=== PATIENT | male | born 1995 | race Two or more races ===

== ENCOUNTER 2020-08-20 15:34 | Inpatient (IN) | payer SELFPAY ==
[~2020-08-20] VITALS: Ht 177.8 cm; Wt 78.4 kg
[2020-08-20] MEDS ORDERED: CHOLECALCIFEROL (VITD3) 2,000 UNIT CAP PO ONE (16:00)
[2020-08-20] MEDS ORDERED: ASCORBIC ACID 500 MG TAB PO ONE (16:00)
[2020-08-20] MEDS ORDERED: REMDESIVIR PER PHARMACY 0 ML IV SCH (16:00)
[2020-08-20] MEDS ORDERED: ZINC SULFATE 220mg CAP or TAB PO ONE (16:00)
[2020-08-20] MEDS ORDERED: methylPREDNISolone SOD SUCC 125 MG/2 ML VL IV ONE (16:00)
[2020-08-20] MEDS ORDERED: AZITHROMYCIN 500MG/ 250ML 250 ML IV ONE (16:00)
[2020-08-20 18:27] LABS: Basophils # (auto) 0 10 ^3/uL (0-0.2); Eosinophils # (auto) 0 10 ^3/uL (0-0.8); Eosinophils % (auto) 0.1 % (0.0-7.0); Hematocrit 40.6 % (41.0-53.0); Monocytes # (auto) 0.6 10 ^3/uL (0-1.3); Monocytes % (auto) 9.2 % (0.0-12.0); Red Cell Distribution Width 13.3 % (11.8-14.3)
[2020-08-20 18:35] LABS: Basophils % (auto) 0.2 % (0.0-2.0); Hemoglobin 13.8 g/dL (13.5-17.5); Lymphocytes % (auto) 14.9 % (10.0-50.0); Mean Corpuscular Hemoglobin 28.4 pg (28.0-32.0); Mean Corpuscular Volume 83.5 fL (80.0-100.0); Neutrophils % (auto) 75.6 % (37.0-80.0); Nucleated Red Blood Cells % 0.2 %; Platelet Count (auto) 280 10^3/uL (140-450); Red Blood Cells 4.86 10^6/uL (4.5-5.90); White Blood Cell 6.6 10^3/uL (4.4-10.8)
[2020-08-20 18:46] LABS: Albumin 2.7 g/dL (3.4-5.0); Calcium 8.8 mg/dL (8.5-10.1); Potassium 4.2 mmol/L (3.5-5.1)
[2020-08-20 18:54] LABS: BUN/Creatinine Ratio 23.7; Bilirubin, Total 0.6 mg/dL (0.2-1.0); Total Protein 7.6 g/dL (6.4-8.2)
[2020-08-21] MEDS ORDERED: NITROGLYCERIN 0.4 MG SL TAB SL PRN (01:00)
[2020-08-21] MEDS ORDERED: ACETAMINOPHEN 325 MG TAB PO PRN (01:00)
[2020-08-21] MEDS ORDERED: HYDROcodone-ACET 5/325MG TAB PO PRN (01:00)
[2020-08-21] MEDS ORDERED: DOCUSATE SOD 100 MG CAP PO PRN (01:00)
[2020-08-21] MEDS ORDERED: ONDANSETRON HCL 4 MG/2 ML VIAL IV PRN (01:00)
[2020-08-21] MEDS ORDERED: MORPHINE SULF INJ 2 MG/ML SYRINGE 1ML IV PRN (01:00)
[2020-08-21 01:42] LABS: Hematocrit 39.3 % (41.0-53.0); Hemoglobin 13.3 g/dL (13.5-17.5); Mean Corpuscular Hgb Conc. 33.8 g/dL (32.0-36.0); Mean Corpuscular Volume 82.9 fL (80.0-100.0); Platelet Count (auto) 301 10^3/uL (140-450); Red Blood Cells 4.74 10^6/uL (4.5-5.90); Red Cell Distribution Width 13.1 % (11.8-14.3)
[2020-08-21 01:57] LABS: Basophils % (manual) 0 (0.0-2.0); Blast Cells 0; Eosinophils % (manual) 0 (0-7); Promyelocytes % 0; Reactive Lymphocytes 0
[2020-08-21 02:01] LABS: Albumin 2.5 g/dL (3.4-5.0); Calcium 8.6 mg/dL (8.5-10.1); Potassium 4.1 mmol/L (3.5-5.1)
[2020-08-21 02:04] LABS: BUN/Creatinine Ratio 27.4; Bilirubin, Total 0.2 mg/dL (0.2-1.0); Total Protein 7.4 g/dL (6.4-8.2)
[2020-08-21 03:55] VITALS: BP_SYST 131; BP_DIAS 63; BP_DIAS 68
[2020-08-21 04:29] LABS: Band Neutrophils % (manual) 9; Lymphocytes % (manual) 18 (10.0-50.0); Metamyelocytes % 1; Monocytes % (manual) 9 (0-12); Myelocytes % 1
[2020-08-21] MEDS: SODIUM CHLOR 0.9% PF (SALINE LOCK) 10ML VIAL/SYR IV SCH ×3 (10:32→21:50)
[2020-08-21] MEDS: DexAMETHasone SOD PHOS 10MG/1ML VIAL INJ IV SCH (10:33)
[2020-08-21] MEDS: ASCORBIC ACID 500 MG TAB PO SCH ×2 (10:34→21:50)
[2020-08-21] MEDS: ZINC SULFATE 220mg CAP or TAB PO SCH (10:34)
[2020-08-21] MEDS: DOXYCYCLINE 100MG/250ML 250 ML IV SCH ×2 (10:35→21:50)
[2020-08-21] MEDS: FAMOTIDINE 20 MG TAB PO SCH ×2 (10:36→21:50)
[2020-08-21] MEDS: ENOXAPARIN SOD 40 MG/0.4 ML SYRINGE SC SCH (10:37)
[2020-08-21] MEDS: MULTIPLE VITAMIN TAB PO SCH (10:37)
[2020-08-21] MEDS: CHOLECALCIFEROL (VITD3) 2,000 UNIT CAP PO SCH (10:37)
[2020-08-21] MEDS ORDERED: ASCO500T11 PO (12:07)
[2020-08-21] MEDS ORDERED: ZINC220C8 PO (12:07)
[2020-08-21] MEDS ORDERED: PHENPAK3 PO (12:07)
[2020-08-21 16:00] VITALS: BP 97/60
[2020-08-21 18:49] VITALS: BP 107/55
[2020-08-21] MEDS: BUDESONIDE (INHALATION) 180 MCG IH IN SCH (20:43)
[2020-08-21] MEDS: guaiFENesin-DM 100/10mg/5ml SYR PO PRN (21:50)
[2020-08-22] VITALS: BP_SYST 114; BP_SYST 127; BP_DIAS 70; BP_DIAS 76
[2020-08-22] MEDS: SODIUM CHLOR 0.9% PF (SALINE LOCK) 10ML VIAL/SYR IV SCH ×3 (06:00→22:30)
[2020-08-22 08:00] VITALS: BP 102/61
[2020-08-22] MEDS: ZINC SULFATE 220mg CAP or TAB PO SCH (09:50)
[2020-08-22] MEDS: DexAMETHasone SOD PHOS 10MG/1ML VIAL INJ IV SCH (09:50)
[2020-08-22] MEDS: DOXYCYCLINE 100MG/250ML 250 ML IV SCH ×2 (09:50→22:30)
[2020-08-22] MEDS: FAMOTIDINE 20 MG TAB PO SCH ×2 (09:50→22:30)
[2020-08-22] MEDS: MULTIPLE VITAMIN TAB PO SCH (09:50)
[2020-08-22] MEDS: ASCORBIC ACID 500 MG TAB PO SCH ×2 (09:50→22:30)
[2020-08-22] MEDS: ENOXAPARIN SOD 40 MG/0.4 ML SYRINGE SC SCH (09:51)
[2020-08-22] MEDS: CHOLECALCIFEROL (VITD3) 2,000 UNIT CAP PO SCH (09:51)
[2020-08-22] MEDS: BUDESONIDE (INHALATION) 180 MCG IH IN SCH ×2 (10:33→19:38)
[2020-08-22 13:17] LABS: Hematocrit 43.6 % (41.0-53.0); Hemoglobin 14.6 g/dL (13.5-17.5); Mean Corpuscular Hemoglobin 28.1 pg (28.0-32.0); Mean Corpuscular Hgb Conc. 33.6 g/dL (32.0-36.0); Mean Corpuscular Volume 83.6 fL (80.0-100.0); Platelet Count (auto) 468 10^3/uL (140-450); Red Blood Cells 5.21 10^6/uL (4.5-5.90); Red Cell Distribution Width 13.1 % (11.8-14.3)
[2020-08-22 13:26] LABS: Blast Cells 0; Eosinophils % (manual) 0 (0-7); Promyelocytes % 0; Reactive Lymphocytes 0
[2020-08-22 13:27] LABS: Calcium 9.4 mg/dL (8.5-10.1); Potassium 4.1 mmol/L (3.5-5.1)
[2020-08-22 13:31] LABS: BUN/Creatinine Ratio 22.2; Bilirubin, Total 0.3 mg/dL (0.2-1.0)
[2020-08-22 13:38] LABS: Band Neutrophils % (manual) 1; Basophils % (manual) 1 (0.0-2.0); Lymphocytes % (manual) 21 (10.0-50.0); Metamyelocytes % 2; Monocytes % (manual) 4 (0-12); Myelocytes % 1
[2020-08-22 16:00] VITALS: BP 117/74
[2020-08-22] MEDS: guaiFENesin-DM 100/10mg/5ml SYR PO PRN (22:30)
[2020-08-22] MEDS: ALBUTEROL SULF HFA 90MCG INH 200DOSE IN PRN (23:22)
[2020-08-23] VITALS: BP 114/76
[2020-08-23] MEDS: SODIUM CHLOR 0.9% PF (SALINE LOCK) 10ML VIAL/SYR IV SCH ×3 (06:00→22:30)
[2020-08-23 07:45] LABS: Hematocrit 41.9 % (41.0-53.0); Hemoglobin 14.1 g/dL (13.5-17.5); Mean Corpuscular Hemoglobin 27.8 pg (28.0-32.0); Mean Corpuscular Hgb Conc. 33.6 g/dL (32.0-36.0); Mean Corpuscular Volume 82.7 fL (80.0-100.0); Platelet Count (auto) 429 10^3/uL (140-450); Red Blood Cells 5.06 10^6/uL (4.5-5.90); White Blood Cell 8.3 10^3/uL (4.4-10.8)
[2020-08-23 07:55] LABS: Basophils % (manual) 0 (0.0-2.0); Blast Cells 0; Eosinophils % (manual) 0 (0-7); Myelocytes % 0; Promyelocytes % 0; Reactive Lymphocytes 0
[2020-08-23 08:00] VITALS: BP 106/65
[2020-08-23 08:01] LABS: Calcium 9.1 mg/dL (8.5-10.1)
[2020-08-23 09:06] LABS: Band Neutrophils % (manual) 3; Lymphocytes % (manual) 30 (10.0-50.0); Metamyelocytes % 4; Monocytes % (manual) 6 (0-12)
[2020-08-23 09:13] LABS: BUN/Creatinine Ratio 22.1
[2020-08-23] MEDS: BUDESONIDE (INHALATION) 180 MCG IH IN SCH ×2 (09:32→19:15)
[2020-08-23] MEDS: DOXYCYCLINE 100MG/250ML 250 ML IV SCH ×2 (09:48→22:30)
[2020-08-23] MEDS: DexAMETHasone SOD PHOS 10MG/1ML VIAL INJ IV SCH (09:48)
[2020-08-23] MEDS: ASCORBIC ACID 500 MG TAB PO SCH ×2 (09:49→22:30)
[2020-08-23] MEDS: CHOLECALCIFEROL (VITD3) 2,000 UNIT CAP PO SCH (09:49)
[2020-08-23] MEDS: ZINC SULFATE 220mg CAP or TAB PO SCH (09:49)
[2020-08-23] MEDS: MULTIPLE VITAMIN TAB PO SCH (09:49)
[2020-08-23] MEDS: FAMOTIDINE 20 MG TAB PO SCH ×2 (09:49→22:30)
[2020-08-23] MEDS: ENOXAPARIN SOD 40 MG/0.4 ML SYRINGE SC SCH (09:50)
[2020-08-23 11:05] LABS: Albumin 2.9 g/dL (3.4-5.0)
[2020-08-23 11:09] LABS: Alanine Aminotransferase 221 U/L (16-61); Alkaline Phosphatase 120 U/L (45-117); Aspartate Aminotransferase 58 U/L (15-37); Bilirubin, Direct < 0.1 mg/dL (0-0.2); Bilirubin, Total 0.3 mg/dL (0.2-1.0); Total Protein 7.2 g/dL (6.4-8.2)
[2020-08-23 16:00] VITALS: BP 110/70
[2020-08-23] MEDS: ALBUTEROL SULF HFA 90MCG INH 200DOSE IN PRN (19:15)
[2020-08-24] VITALS: BP 109/66
[2020-08-24] MEDS: SODIUM CHLOR 0.9% PF (SALINE LOCK) 10ML VIAL/SYR IV SCH (05:56)
[2020-08-24] MEDS: BUDESONIDE (INHALATION) 180 MCG IH IN SCH (06:35)
[2020-08-24 06:44] LABS: Hematocrit 39.8 % (41.0-53.0); Hemoglobin 13.5 g/dL (13.5-17.5); Mean Corpuscular Hemoglobin 28.1 pg (28.0-32.0); Mean Corpuscular Hgb Conc. 33.9 g/dL (32.0-36.0); Mean Corpuscular Volume 82.9 fL (80.0-100.0); Platelet Count (auto) 481 10^3/uL (140-450); Red Blood Cells 4.79 10^6/uL (4.5-5.90); Red Cell Distribution Width 13.3 % (11.8-14.3); White Blood Cell 10.1 10^3/uL (4.4-10.8)
[2020-08-24 07:03] LABS: Band Neutrophils % (manual) 0; Basophils % (manual) 0 (0.0-2.0); Blast Cells 0; Eosinophils % (manual) 0 (0-7); Promyelocytes % 0; Reactive Lymphocytes 0
[2020-08-24 07:12] LABS: Potassium 4.1 mmol/L (3.5-5.1)
[2020-08-24 07:18] LABS: Albumin 2.9 g/dL (3.4-5.0); BUN/Creatinine Ratio 19.4; Bilirubin, Total 0.3 mg/dL (0.2-1.0); Calcium 8.6 mg/dL (8.5-10.1); Total Protein 7.1 g/dL (6.4-8.2)
[2020-08-24 07:56] LABS: Lymphocytes % (manual) 40 (10.0-50.0); Metamyelocytes % 2; Monocytes % (manual) 6 (0-12); Myelocytes % 2
[2020-08-24 08:00] VITALS: BP 91/55
[2020-08-24] MEDS: guaiFENesin-DM 100/10mg/5ml SYR PO PRN (08:38)
[2020-08-24] MEDS: ZINC SULFATE 220mg CAP or TAB PO SCH (10:13)
[2020-08-24] MEDS: MULTIPLE VITAMIN TAB PO SCH (10:13)
[2020-08-24] MEDS: DexAMETHasone SOD PHOS 10MG/1ML VIAL INJ IV SCH (10:14)
[2020-08-24] MEDS: ASCORBIC ACID 500 MG TAB PO SCH (10:14)
[2020-08-24] MEDS: ENOXAPARIN SOD 40 MG/0.4 ML SYRINGE SC SCH (10:14)
[2020-08-24] MEDS: DOXYCYCLINE 100MG/250ML 250 ML IV SCH (10:15)
[2020-08-24] MEDS: FAMOTIDINE 20 MG TAB PO SCH (10:16)
[2020-08-24] MEDS: CHOLECALCIFEROL (VITD3) 2,000 UNIT CAP PO SCH (10:17)
[2020-08-24] MEDS ORDERED: CHOL1CAP47 PO (11:27)
[2020-08-24] MEDS ORDERED: DOXY-332 PO (11:27)
[2020-08-24] MEDS ORDERED: DEXT1SYP9 PO (11:27)
[2020-08-24] MEDS ORDERED: DEX4T PO (11:27)
[2020-08-24 12:53] VITALS: BP 91/55
== END 2020-08-24 13:55 | disposition home or self-care (01) | DRG 177 ==
LOC: ER 15:34 → TELE 15:35 → TELE-EAST 08-21 03:07
PROVIDERS: ADMIT Nurse Practitioner Family; ATTEND Internal Medicine Pulmonary Disease
PROC: XW033E5 Introduction of Remdesivir Anti-infective into Peripheral Vein, Percutaneous Approach, New Technology Group 5 (ICD-10-PCS; principal; 2020-08-20)
PROC: XW13325 Transfusion of Convalescent Plasma (Nonautologous) into Peripheral Vein, Percutaneous Approach, New Technology Group 5 (ICD-10-PCS; 2020-08-21)
DX: U07.1 COVID-19 (principal); J12.82 Pneumonia due to coronavirus disease 2019; J96.01 Acute respiratory failure with hypoxia; R79.1 Abnormal coagulation profile
CPT/HCPCS: 36415; 71045; 80048; 80053; 80076; 82728; 83036; 83605; 85007; 85025; 85027; 85379; 86141; 86850; 86900; 86901; 87040; 87426; 94640; 96365; 96366; 96375; G0378; J1100; J3490